=== PATIENT | female | born 1990 | race Caucasian/White ===

== ENCOUNTER 2017-01-13 15:39 | Emergency (ER) | payer OTHER ==
[2017-01-13 15:46] VITALS: RESP 16
[2017-01-13] MEDS ORDERED: LETS SOLN TOPICAL 1 EA SYR TP ONE (16:20)
[2017-01-13] MEDS ORDERED: OXYCODONE/APAP 5/325 TAB PO ONE (16:24)
--- NOTE | 2017-01-13 17:30 | UCPHY ---
H & P Time Seen by Provider: 01/13/17 15:54 Patient Type: New HPI/ROS: 26-year-old female presents complaining of pain swelling and drainage in her right inner thigh states she has had a cyst there before that required drainage. It started draining last night No fevers or chills Review of systems As per HPI General no fever no chills no weakness HEENT no eye pain no eye discharge. No eye redness, no sore throat Respiratory no cough, no shortness of breath Cardiac no chest pain, no peripheral edema GI no abdominal pain, no diarrhea, no constipation, no nausea, no vomiting no flank pain, no hematuria, no dysuria Musculoskeletal no myalgias, no joint pain Heme no easy bruising, no easy bleeding Endo no polyuria, no polydipsia Skin positive rashes, no pruritus Neuro no syncope, no dizziness, no headaches Psych is no suicidal ideation, no homicidal ideation Past Medical/Surgical History: Hypothyroidism Social History: Denies excessive alcohol or drug use Smoking Status: Never smoked Physical Exam: 26-year-old female alert and oriented no acute distress nontoxic appearance afebrile Alert and oriented in no acute distress nontoxic appearance, afebrile Atraumatic normocephalic Neck no JVD Lungs clear to auscultation, no respiratory distress Heart regular rate and rhythm Extremities no cyanosis clubbing edema Right groin 1.5 x 3 cm mass with central fluctuance and drainage, erythematous Constitutional: Initial Vital Signs Temperature (C) 36.7 C 01/13/17 15:44 Heart Rate 98 01/13/17 15:44 Respiratory Rate 16 01/13/17 15:44 Blood Pressure 100/66 01/13/17 15:44 O2 Sat (%) 95 01/13/17 15:44 O2 Delivery Mode Room Air Allergies/Adverse Reactions: No Known Allergies Allergy (Unverified 01/13/17 15:43) Home Medications: Medication Instructions Recorded Abilify 01/13/17 Clindamycin HCl [Clindamycin] 300 mg PO TID #21 cap 01/13/17 Levothyroxine 01/13/17 oxyCODONE/APAP 5/325 [Percocet 1 tab PO Q6 PRN #12 tab 01/13/17 5/325 (*)] Medical Decision Making Procedures: Abscess-procedure note The patient gave verbal consent for drainage of a subcutaneous abscess. Risk of bleeding and pain were explained to the patient. The most fluctuant aspect of the abscess was identified. Local anesthetic lidocaine 1% was used. A scalpel was used to incise the abscess. 5 mL of purulent drainage was expressed. Abscess was irrigated and packed. The patient tolerated procedure well. ED Course/Re-evaluation: Patient seen and evaluated for right groin abscess Let applied prior to procedure, patient given Percocet also prior to procedure Impression abscess Plan incision and drainage Home on clindamycin and Percocet - Data Points Medications Given: Discontinued Medications Oxycodone/Acetaminophen (Percocet 5/325) 2 tab PO EDNOW ONE Stop: 01/13/17 16:25 Last Admin: 01/13/17 16:36 Dose: 2 tab Departure - Departure Disposition: Home, Routine, Self-Care Clinical Impression: Cutaneous abscess of groin Condition: Good Instructions: Abscess (ED) Referrals: ESTHER LOZADA [Primary Care Provider] - As per Instructions Prescriptions: Clindamycin HCl [Clindamycin] 300 mg PO TID #21 cap oxyCODONE/APAP 5/325 [Percocet 5/325 (*)] 1 tab PO Q6 PRN #12 tab PRN Reason: Pain, Severe - PQRS PQRS Measurement: na
[2017-01-13 18:09] VITALS: BP 116/69; PULSE 78; TEMP 100; O2SAT 99
== END 2017-01-13 17:47 | disposition home or self-care (01) ==
LOC: CED 15:39
PROC: 0H9HXZZ Drainage of Right Upper Leg Skin, External Approach (ICD-10-PCS; principal; 2017-01-13)
DX: L02.214 Cutaneous abscess of groin (principal)
CPT/HCPCS: 99203-PO; G0463-PO